=== PATIENT | male | born 1990 | race Hispanic/Latino ===

== ENCOUNTER 2017-07-21 18:45 | Emergency (ER) | payer OTHER ==
--- NOTE | 2017-07-21 19:16 | ED PDOC ---
Arrival/HPI - General Chief Complaint: Chest Pain Time Seen by Provider: 07/21/17 18:53 Historian: Patient - History of Present Illness Narrative History of Present Illness (Text): 07/21/17 19:16 A 27 year old male, whose past medical history includes , presents to the emergency department complaining of right-sided chest pain that radiates to the left side of the chest. Patient reports began several weeks ago. Notes sensation occurs in the afternoon and at night when trying to sleep. Patient denies any shortness of breath, dizziness, or any other complaints. PMD: Dr. Moe Past Medical History - Provider Review Nursing Documentation Reviewed: Yes - Infectious Disease Hx of Infectious Diseases: None - Cardiac Hx Cardiac Disorders: No - Pulmonary Hx Respiratory Disorders: No - Neurological Hx Neurological Disorder: No - HEENT Hx HEENT Disorder: No - Renal Hx Renal Disorder: No - Endocrine/Metabolic Hx Endocrine Disorders: No - Hematological/Oncological Hx Blood Disorders: No - Integumentary Hx Dermatological Disorder: No - Musculoskeletal/Rheumatological Hx Musculoskeletal Disorders: Yes Other/Comment: Pin in L hip - Gastrointestinal Hx Gastrointestinal Disorders: No - Genitourinary/Gynecological Hx Genitourinary Disorders: No - Psychiatric Hx Psychophysiologic Disorder: No Hx Substance Use: No - Surgical History Hx Musculoskeletal Surgery: Yes (Pin in L hip) - Anesthesia Hx Anesthesia: Yes Hx Anesthesia Reactions: No Family/Social History - Physician Review Nursing Documentation Reviewed: Yes Family/Social History: No Known Family HX Smoking Status: Current Some Days Smoker Hx Alcohol Use: Yes Frequency of alcohol use: Socially Hx Substance Use: No Allergies/Home Meds Allergies/Adverse Reactions: Allergies No Known Allergies Allergy (Verified 07/21/17 18:47) Home Medications: Home Meds Medication Instructions Recorded Confirmed No Known Home Med 07/21/17 07/21/17 Review of Systems - Physician Review All systems were reviewed & negative as marked: Yes - Review of Systems Respiratory: absent: SOB Cardiovascular: Chest Pain Neurological: absent: Dizziness Physical Exam - Systems Exam Head: Present: Atraumatic, Normocephalic Pupils: Present: PERRL Extroacular Muscles: Present: EOMI Conjunctiva: Present: Normal Mouth: Present: Moist Mucous Membranes Neck: Present: Normal Range of Motion Respiratory/Chest: Present: Clear to Auscultation, Good Air Exchange. No: Respiratory Distress, Accessory Muscle Use Cardiovascular: Present: Regular Rate and Rhythm, Normal S1, S2. No: Murmurs Abdomen: Present: Normal Bowel Sounds. No: Tenderness, Distention, Peritoneal Signs Back: Present: Normal Inspection Upper Extremity: Present: Normal Inspection. No: Cyanosis, Edema Lower Extremity: Present: Normal Inspection. No: Edema Neurological: Present: GCS=15, CN II-XII Intact, Speech Normal Skin: Present: Warm, Dry, Normal Color. No: Rashes Psychiatric: Present: Alert, Oriented x 3, Normal Insight, Normal Concentration Medical Decision Making ED Course and Treatment: 07/21/17 19:17 Impression: 27 year old male with chest pain. Physical exam is normal. Plan: -- EKG -- Chest X-ray -- Labs -- Reassess and disposition Progress Notes: EKG: Ordered, reviewed, and independently interpreted the EKG. Rate : 66 BPM Rhythm : NSR Interpretation : No ST-segment elevations or depressions, no T-wave inversions, normal intervals. Comparison : No previous EKG for comparison. - Lab Interpretations Lab Results: 07/21/17 18:53 07/21/17 18:53 Lab Results 07/21/17 18:53: Sodium 143, Potassium 3.9, Chloride 103, Carbon Dioxide 28, Anion Gap 16, BUN 13, Creatinine 0.9, Est GFR ( Amer) > 60, Est GFR (Non- Af Amer) > 60, Random Glucose 107, Calcium 10.1, Total Bilirubin 0.5, AST 28, ALT 36, Alkaline Phosphatase 54, Lactate Dehydrogenase 393, Total Creatine Kinase 128, Troponin I < 0.01, Total Protein 8.0, Albumin 4.6, Globulin 3.4, Albumin/Globulin Ratio 1.4 07/21/17 18:53: PT 11.6, INR 1.02, D-Dimer, Quantitative < 200 07/21/17 18:53: WBC 7.4, RBC 4.55, Hgb 13.8 L, Hct 39.3 L, MCV 86.4, MCH 30.3, MCHC 35.1, RDW 12.3, Plt Count 215, MPV 10.0, Gran % 50.8, Lymph % (Auto) 42.6 H , Camp % (Auto) 5.4, Eos % (Auto) 1.1 L, Baso % (Auto) 0.1, Gran # 3.74, Lymph # 3.1, Camp # 0.4, Eos # 0.1, Baso # 0.01 - RAD Interpretation Radiology Orders: 07/21/17 18:53 CXR [CHEST TWO VIEWS (PA/LAT)] [RAD] Stat - PA / SECURITY PUBLIC SAFETY OFFICER / Resident Statement MD/DO has reviewed & agrees with the documentation as recorded. - Scribe Statement The provider has reviewed the documentation as recorded by the Olafibeverette Pratt Provider Scribe Attestation: All medical record entries made by the Scribe were at my direction and personally dictated by me. I have reviewed the chart and agree that the record accurately reflects my personal performance of the history, physical exam, medical decision making, and the department course for this patient. I have also personally directed, reviewed, and agree with the discharge instructions and disposition. Disposition/Present on Arrival - Present on Arrival Any Indicators Present on Arrival: No History of DVT/PE: No History of Uncontrolled Diabetes: No Urinary Catheter: No History of Decub. Ulcer: No History Surgical Site Infection Following: None - Disposition Have Diagnosis and Disposition been Completed?: Yes Diagnosis: Musculoskeletal chest pain, Anxiety Disposition: HOME/ ROUTINE Disposition Time: 20:18 Patient Plan: Discharge Condition: GOOD Discharge Instructions (ExitCare): Chest Pain (ED), Anxiety (ED) Additional Instructions: Tio- Sorry you are going through this right now. I think you should follow up with a textile technical officer and a family doctor. Return to us if problems. Try some motrin for the chest discomfort. You may need something for anxiety or you may otherwise elect to see a talk therapist. Best- Dr. Leo Coon Referrals: Chan Moe MD [Primary Care Provider] - Follow up with primary Forms: [employer] (Setswana)
[2017-07-21 19:22] LABS: BASO # 0.01 K/mm3 (0.0-2.0); BASO % 0.1 % (0.0-3.0); EOS # 0.1 (0.0-0.7); EOS % 1.1 % (1.5-5.0); GRAN # 3.74 (1.4-6.5); GRAN % 50.8 % (50.0-68.0); HEMOGLOBIN 13.8 g/dL (14.0-18.0); LYMPH # 3.1 (1.2-3.4); LYMPH % 42.6 % (22.0-35.0); MEAN CELL VOLUME 86.4 fl (80.0-105.0); MEAN CORPUSCULAR HEMOGLOBIN 30.3 pg (25.0-35.0); MEAN CORPUSCULAR HGB CONC 35.1 g/dl (31.0-37.0); MONO # 0.4 (0.1-0.6); MONO % 5.4 % (1.0-6.0); RBC 4.55 10^6/uL (3.5-6.1); RED CELL DISTRIBUTION WIDTH 12.3 % (11.5-14.5); WHITE BLOOD COUNT 7.4 10^3/ul (4.5-11.0)
[2017-07-21 19:23] LABS: INR 1.02 (0.93-1.08); PROTHROMBIN TIME 11.6 SECONDS (9.4-12.5)
[2017-07-21 19:25] LABS: ALB/GLOB RATIO 1.4 (1.1-1.8); ALBUMIN 4.6 g/dL (3.0-4.8); ALT/SGPT 36 U/L (7-56); AST/SGOT 28 U/L (17-59); BLOOD UREA NITROGEN 13 mg/dL (7-21); CALCIUM 10.1 mg/dL (8.4-10.5); GFR AFRICAN-AMERICAN > 60; GFR NON-AFRICAN AMERICAN > 60
[2017-07-21 19:36] LABS: TROPONIN I < 0.01 ng/mL
[2017-07-21 19:43] LABS: D DIMER < 200 ng/mL (0-243)
[2017-07-21 20:45] VITALS: BP 124/82; PULSE 65; RESP 16; O2SAT 98
--- NOTE | 2017-07-22 08:26 | RAD ---
HISTORY: COMPARISON: No prior. TECHNIQUE: Chest PA and lateral FINDINGS: LINES AND TUBES: None. LUNG AND PLEURA: The lungs are well inflated. There are scattered reticular nodular opacities in the lower lobes. HEART AND MEDIASTINUM: The heart is not enlarged. The hilar and mediastinal contours are within normal limits. SKELETAL STRUCTURES: The bony structures are within normal limits for the patient's age. VISUALIZED UPPER ABDOMEN: Normal. OTHER FINDINGS: None. IMPRESSION: No focal consolidation. Scattered reticular nodular opacities in the lower lobes could represent end on vessels or tiny calcified granulomas.
--- NOTE | 2017-07-22 16:04 | CARD ---
APPROVED REPORT EKG Measurement Heart [id number] <Conclusion> Normal sinus rhythm Normal ECG
== END 2017-07-21 20:32 | disposition home or self-care (01) ==
LOC: ED 18:45
DX: R07.89 Other chest pain (principal); F41.9 Anxiety disorder, unspecified